=== PATIENT | male | born 1995 | race Caucasian/White ===

== ENCOUNTER 2018-01-01 22:20 | Inpatient (IN) | payer MEDICAID ==
[~2018-01-01] VITALS: Ht 177.8 cm; Wt 82.2 kg
[2018-01-01 22:29] VITALS: Ht 177.8 cm; Wt 82.2 kg
[2018-01-02 00:24] LABS: BASOPHIL % 0.2 % (0-2); CALCIUM 9.1 mg/dL (8.5-10.1); CARBON DIOXIDE 24.8 mmol/L (21-32); CHLORIDE SERUM 102 mmol/L (98-107); CREATININE SERUM 1.1 mg/dL (0.7-1.3); GFR1 > 60 mL/min; GLUCOSE SERUM 94 mg/dL (74-106); PLATELET COUNT 220 x10^3mcL (130-400); POTASSIUM SERUM 3.5 mmol/L (3.5-5.1); RED CELL DISTRIBUTION WIDTH 12.9 % (11.5-14.5); SODIUM SERUM 137 mmol/L (136-145)
[2018-01-02 00:29] LABS: ALBUMIN 3.4 g/dL (3.4-5.0); ALKALINE PHOSPHATASE 73 U/L (46-116); ALT/SGPT 24 U/L (16-63); AST/SGOT 21 U/L (15-37); BILIRUBIN TOTAL 0.6 mg/dL (0.20-1.00); TOTAL PROTEIN, SERUM 8.2 g/dL (6.4-8.2)
[2018-01-02] MEDS ORDERED: ALBUTEROL0.63 MG/3 (01:30)
[2018-01-02 02:22] LABS: MAGNESIUM 2.4 mg/dL (1.8-2.4); PHOSPHOROUS 2.9 mg/dL (2.5-4.9)
[2018-01-02 02:26] LABS: CHOLESTEROL/HDL RATIO 3.1
[2018-01-02 02:27] VITALS: BP 113/45
[2018-01-02 02:29] LABS: T3 TOTAL 1.1 ng/mL
[2018-01-02 02:40] VITALS: BP 113/45
[2018-01-02 02:41] LABS: FREE T4 1.32 ng/dL (0.76-1.46); FREE THYROXINE INDEX 3.3 ug/dL (1.4-4.5); T4(THYROXINE) 9.2 ug/dL (4.7-13.3)
[2018-01-02 03:57] VITALS: BP 113/45
[2018-01-02 06:20] LABS: CALCIUM 8.4 mg/dL (8.5-10.1); CARBON DIOXIDE 27.5 mmol/L (21-32); CHLORIDE SERUM 103 mmol/L (98-107); CREATININE SERUM 1.2 mg/dL (0.7-1.3); GFR1 > 60 mL/min; GLUCOSE SERUM 112 mg/dL (74-106); MAGNESIUM 2.3 mg/dL (1.8-2.4); PHOSPHOROUS 3.3 mg/dL (2.5-4.9); POTASSIUM SERUM 3.7 mmol/L (3.5-5.1); SODIUM SERUM 139 mmol/L (136-145)
[2018-01-02 06:36] VITALS: BP 105/48
[2018-01-02 06:56] LABS: BASOPHIL % 0.4 % (0-2); PLATELET COUNT 212 x10^3mcL (130-400)
[2018-01-02 09:34] VITALS: BP 106/55
[2018-01-02] MEDS ORDERED: BACTRIM1 TAB PO (11:45)
[2018-01-02 12:22] VITALS: BP 106/55
== END 2018-01-02 14:28 | disposition home or self-care (01) | DRG 383 ==
LOC: ED 22:20 → MU 01-02 01:11
PROVIDERS: Emergency Medicine; Internal Medicine
DX: L03.115 Cellulitis of right lower limb (principal); F10.10 Alcohol abuse, uncomplicated; J45.909 Unspecified asthma, uncomplicated; F12.10 Cannabis abuse, uncomplicated; F17.210 Nicotine dependence, cigarettes, uncomplicated; Z68.25 Body mass index [BMI] 25.0-25.9, adult
CPT/HCPCS: 83880; 84439; 94150; J2270; J2543; J2550; J3370; J7030; Q0092